=== PATIENT | male | born 1955 | race Caucasian/White ===

== ENCOUNTER 2017-09-24 19:04 | Emergency (ER) | payer SELFPAY ==
[2017-09-24] MEDS: HYDROCODONE/APAP (10/325) TAB PO (19:33)
[2017-09-24] MEDS: NICARDipine HCL 30 MG CAPSULE PO (19:34)
== END 2017-09-24 23:09 | disposition home or self-care (01) ==
LOC: E/R 19:04
DX: S16.1XXA Strain of muscle, fascia and tendon at neck level, initial encounter (principal); S39.012A Strain of muscle, fascia and tendon of lower back, initial encounter; I10 Essential (primary) hypertension; V49.49XA Driver injured in collision with other motor vehicles in traffic accident, initial encounter
CPT/HCPCS: 72125; 72131; 99285-25